=== PATIENT | female | born 1940 | race Caucasian/White ===

== ENCOUNTER 2020-07-23 14:10 | Inpatient (IN) | payer MEDICARE, OTHER ==
[~2020-07-23] VITALS: Ht 160 cm; Wt 57.6 kg
[2020-07-23] MEDS ORDERED: fentaNYL/PF 50MCG/1 ML 2ML syringe IV ONE ×2 (14:45→15:55)
[2020-07-23] MEDS ORDERED: normal saline 1000ML IV soln IVB ONE (14:45)
[2020-07-23] MEDS ORDERED: ondansetron/PF 4mg/2ml inj IV ONE (14:45)
[2020-07-23] MEDS ORDERED: iohexol 300mg/ml 100ml inj. ONE (15:33)
--- NOTE | 2020-07-23 16:22 | NUR ---
pt's daughter delroy
[2020-07-23] MEDS ORDERED: CLOP75TA15 PO (17:25)
[2020-07-23] MEDS ORDERED: ASPI-611 PO (17:25)
[2020-07-23] MEDS ORDERED: ATOR10TA70 PO (17:25)
[2020-07-23] MEDS ORDERED: CALC-723 PO (17:25)
[2020-07-23] MEDS ORDERED: DICL100G15 TOP (17:25)
[2020-07-23 17:28] LABS: BASOPHILS # (AUTO) 0.1 X10'3 (0-0.2); BASOPHILS % (AUTO) 0.3 % (0-1); EOSINOPHILS % (AUTO) 0.1 % (0-6); HEMATOCRIT 39.4 % (35.0-45.0); LYMPHOCYTES # (AUTO) 0.6 X10'3 (1.1-4.8); LYMPHOCYTES % (AUTO) 3.2 % (21-51); MEAN CORPUSCULAR HEMOGLOBIN 31.2 PG (27.0-31.0); MEAN CORPUSCULAR HGB CONC 33.1 g/dL (33.0-36.5); MEAN CORPUSCULAR VOLUME 94.4 FL (78-98); MEAN PLATELET VOLUME 8.9 FL (7.4-10.4); MONOCYTES # (AUTO) 1.1 X10'3 (0-0.9); MONOCYTES % (AUTO) 5.5 % (2-12); NEUTROPHILS # (AUTO) 18.3 X10'3 (1.8-7.7); NEUTROPHILS % (AUTO) 90.9 % (42-75); PLATELET COUNT 238 X10'3 (140-440); RED BLOOD COUNT 4.17 X10'6 (4.20-5.60); RED CELL DISTRIBUTION WIDTH 13.3 % (11.5-14.5); WHITE BLOOD COUNT 20.2 X10'3 (4.5-11.0)
[2020-07-23 17:43] LABS: ALANINE AMINOTRANSFERASE 31 U/L (12-78); ALBUMIN 4.1 G/DL (3.4-5.0); ALBUMIN/GLOBULIN RATIO 1.4 (1.1-1.5); ALKALINE PHOSPHATASE 65 IU/L (46-116); ANION GAP 11 (8-16); ASPARTATE AMINO TRANSFERASE 23 U/L (10-37); BILIRUBIN,TOTAL 0.4 MG/DL (0.1-1.0); BLOOD UREA NITROGEN 15 MG/DL (7-18); BUN/CREATININE RATIO 16.9 (6.6-38.0); CALCIUM 9.9 MG/DL (8.5-10.1); CHLORIDE 107 MMOL/L (99-107); CREATININE 0.89 MG/DL (0.40-0.90); GLUCOSE 108 MG/DL (70-104); POTASSIUM 4.1 MMOL/L (3.5-5.1); SODIUM 142 MMOL/L (135-145); TOTAL CARBON DIOXIDE 24.5 MMOL/L (24-32); eGFR 61 ML/MIN
[2020-07-23] MEDS ORDERED: acetaminophen 650mg rectal suppository RC PRN (17:50)
[2020-07-23] MEDS ORDERED: HYDROcodone/acetaminophen 5mg/325mg tablet PO PRN (17:50)
[2020-07-23] MEDS ORDERED: potassium CL 10mEq/100ml bag 100 ML IV PRN ×2 (17:50)
[2020-07-23] MEDS ORDERED: diphenhydrAMINE 25mg capsule PO PRN (17:50)
[2020-07-23] MEDS ORDERED: potassium Cl 20 mEq SR tablet PO PRN ×2 (17:50)
[2020-07-23] MEDS ORDERED: ondansetron/PF 4mg/2ml inj IV PRN (17:50)
[2020-07-23] MEDS ORDERED: magnesium 4gm in 100ml NS 100 ML IV PRN (17:50)
[2020-07-23] MEDS ORDERED: magnesium 2GM in 50ml NS 50 ML IV PRN (17:50)
[2020-07-23] MEDS ORDERED: acetaminophen 325mg tablet PO PRN ×2 (17:50)
[2020-07-23] MEDS ORDERED: magnesium Cl slow-release 64mg tablet PO PRN (17:50)
[2020-07-23] MEDS ORDERED: morphine 2 MG/ML inj. syringe IV PRN (17:50)
[2020-07-23] MEDS ORDERED: ipratropium/albuterol 3ml nebule NEB PRN (17:50)
[2020-07-23] MEDS ORDERED: bisacodyl 10mg suppository rectal RC PRN (17:50)
[2020-07-23] MEDS ORDERED: magnesium hydroxide 30ml (MOM) UD suspension PO PRN (17:50)
[2020-07-23] MEDS ORDERED: HYDROcodone/acetaminophen 10/325mg tab PO PRN (17:50)
[2020-07-23] MEDS ORDERED: mag hydrox/Alum hydrox/simeth 30ml oral suspension PO PRN (17:50)
[2020-07-23] MEDS: normal saline 1000ml 1,000 ML IV SCH ×2 (18:18→23:03)
--- NOTE | 2020-07-23 19:30 | NUR ---
Pt on unit in [facility] [place] and ambulated to bed.
[2020-07-23] MEDS: K and/or MAG REPLACEMENT MC SCH (19:42)
[2020-07-23 19:45] VITALS: BP 181/76
[2020-07-23 20:40] VITALS: BP 142/68
[2020-07-23] MEDS: morphine 2 MG/ML inj. syringe IV PRN (20:47)
[2020-07-23 20:56] LABS: PARTIAL THROMBOPLASTIN TIME 22 SECONDS (22-32)
[2020-07-23 21:00] LABS: HEMOGLOBIN A1C 5.9 % (4.5-6.2)
[2020-07-23] MEDS ORDERED: atorvastatin 10mg tablet PO SCH (21:00)
[2020-07-23 23:36] LABS: CLARITY,URINE CLEAR (Clear); COLOR,URINE YELLOW (Yellow); GLUCOSE, URINE NEGATIVE (Neg); KETONES,URINE NEGATIVE (Neg); LEUKOCYTE ESTERASE ,URINE NEGATIVE (Neg); NITRITES, URINE NEGATIVE (Neg); OCCULT BLOOD,URINE NEGATIVE (Neg); PH,URINE 5.5 (4.8-8.0); PROTEIN,URINE NEGATIVE (Neg); UROBILINOGEN,URINE 0.2 E.U/dL (0.2-1.0)
[2020-07-23 23:38] LABS: UA COLLECTION TYPE CLN CATCH MIDSTREAM
[2020-07-24 00:15] VITALS: BP 114/57
[2020-07-24] MEDS: morphine 2 MG/ML inj. syringe IV PRN (05:08)
[2020-07-24 06:18] LABS: BASOPHILS % (AUTO) 0.4 % (0-1); EOSINOPHILS # (AUTO) 0.1 X10'3 (0-0.9); EOSINOPHILS % (AUTO) 0.9 % (0-6); HEMATOCRIT 33.1 % (35.0-45.0); HEMOGLOBIN 11.2 g/dl (12.0-16.0); LYMPHOCYTES # (AUTO) 1.6 X10'3 (1.1-4.8); LYMPHOCYTES % (AUTO) 16.8 % (21-51); MEAN CORPUSCULAR HGB CONC 33.8 g/dL (33.0-36.5); MEAN CORPUSCULAR VOLUME 94.8 FL (78-98); MEAN PLATELET VOLUME 9.6 FL (7.4-10.4); MONOCYTES # (AUTO) 1.1 X10'3 (0-0.9); MONOCYTES % (AUTO) 12.2 % (2-12); NEUTROPHILS # (AUTO) 6.5 X10'3 (1.8-7.7); NEUTROPHILS % (AUTO) 69.7 % (42-75); PLATELET COUNT 220 X10'3 (140-440); RED BLOOD COUNT 3.49 X10'6 (4.20-5.60); RED CELL DISTRIBUTION WIDTH 13.7 % (11.5-14.5); WHITE BLOOD COUNT 9.3 X10'3 (4.5-11.0)
--- NOTE | 2020-07-24 06:22 | NUR ---
Problems reprioritized. Patient report given, questions answered & plan of care reviewed with ZACH Malcolm.
[2020-07-24 06:28] LABS: ALANINE AMINOTRANSFERASE 27 U/L (12-78); ALBUMIN 3.2 G/DL (3.4-5.0); ALBUMIN/GLOBULIN RATIO 1.2 (1.1-1.5); ALKALINE PHOSPHATASE 51 IU/L (46-116); ANION GAP 6 (8-16); ASPARTATE AMINO TRANSFERASE 20 U/L (10-37); BILIRUBIN,TOTAL 0.3 MG/DL (0.1-1.0); BLOOD UREA NITROGEN 14 MG/DL (7-18); BUN/CREATININE RATIO 19.7 (6.6-38.0); CALCIUM 8.8 MG/DL (8.5-10.1); CHLORIDE 112 MMOL/L (99-107); CREATININE 0.71 MG/DL (0.40-0.90); GLUCOSE 91 MG/DL (70-104); POTASSIUM 4.2 MMOL/L (3.5-5.1); SODIUM 142 MMOL/L (135-145); TOTAL CARBON DIOXIDE 24.5 MMOL/L (24-32); TOTAL PROTEIN 5.8 G/DL (6.4-8.2); eGFR 79 ML/MIN
[2020-07-24 06:30] LABS: CHOL/HDL RATIO 2.3 (0.00-4.99); CHOLESTEROL 140 MG/DL (0-200); HDL CHOLESTEROL 62 MG/DL (35-60); LDL CHOLESTEROL 68 MG/DL (50-100); PHOSPHORUS 2.9 MG/DL (2.3-4.5); TRIGLYCERIDES 46 MG/DL (20-135)
[2020-07-24 07:40] VITALS: BP 111/61
[2020-07-24] MEDS: K and/or MAG REPLACEMENT MC SCH (08:00)
[2020-07-24 11:30] VITALS: BP 118/64
--- NOTE | 2020-07-24 11:37 | NUR ---
PAGER ID: [phone] MESSAGE: Maryanne RamosB: is this patient dc'ing? ortho said she could go so she called her family to pick her up.. [phone]
[2020-07-24] MEDS ORDERED: ALBU8.5H8 INH (11:42)
[2020-07-24] MEDS ORDERED: HYDR-4383 PO (11:42)
--- NOTE | 2020-07-24 12:12 | NUR ---
Patient stable and appropriate for discharge home with daughter and . IV removed, all belongings taken from room. New prescription e-scripted to preferred pharmacy. patient is aware of next due doses on medications. all discharge instructions and education given and reviewed with patient, all questions answered. patient has phone number for orthopedic surgeon and said she will call [facility] for appointment. Incentive spirometer given to patient and she has been educated on the use. she returned demonstration and has used one before.
== END 2020-07-24 12:11 | disposition home or self-care (01) | DRG 563 ==
LOC: ER 14:11 → ED HOLD 17:50 → EDBEDREQ 18:44 → SUR 3N 19:25
PROVIDERS: ADMIT Family Medicine; ATTEND Family Medicine
PROC: BW241ZZ Computerized Tomography (CT Scan) of Chest and Abdomen using Low Osmolar Contrast (ICD-10-PCS; principal; 2020-07-23)
DX: S42.021A Displaced fracture of shaft of right clavicle, initial encounter for closed fracture (principal); S22.41XA Multiple fractures of ribs, right side, initial encounter for closed fracture; D72.829 Elevated white blood cell count, unspecified; E78.5 Hyperlipidemia, unspecified; I10 Essential (primary) hypertension; I73.9 Peripheral vascular disease, unspecified; V80.010A Animal-rider injured by fall from or being thrown from horse in noncollision accident, initial encounter; Y93.52 Activity, horseback riding; Z79.899 Other long term (current) drug therapy; Z82.49 Family history of ischemic heart disease and other diseases of the circulatory system; Z86.718 Personal history of other venous thrombosis and embolism; Y92.89 Other specified places as the place of occurrence of the external cause; Y99.8 Other external cause status
CPT/HCPCS: 36415; 71260; 73030; 74177; 80053; 80061; 81003; 83036; 83735; 83880; 84100; 84484; 85025; 85610; 85730; 86885; 86900; 86901; 87081; 93005; 94760; 96374; 97110; 97116; 97161; 97530; 99285; G0378; J2270; J2405; J3010; J7030; Q9967